=== PATIENT | female | born 1980 | race Caucasian/White ===

== ENCOUNTER → 2016-07-02 | Outpatient (CLI) | payer OTHER ==
[~2016-07-02] MED LIST: AGM875 PO; ALBU1AER9 INH; AZIT250T PO; BENZ1CAP90 PO; CHOL20009 PO; HYLANDS PO; LEVO75TA5 PO; MULT-506 PO; POTASSIUM PO; [UNRECOGNIZED DRUG - CODE] VA
== END | disposition home or self-care (01) ==
LOC: C.LAB1850 12:50
PROVIDERS: ATTEND Nurse Practitioner Family
DX: E03.9 Hypothyroidism, unspecified (principal); E55.9 Vitamin D deficiency, unspecified

== ENCOUNTER → 2016-07-10 | Day surgery (SDC) | payer OTHER ==
[2016-07-02 11:33] VITALS: BMI 26.0
[~2016-07-10] VITALS: Ht 172.7 cm; Wt 77.3 kg
[~2016-07-10] MED LIST changes: -AGM875 PO; -AZIT250T PO; -BENZ1CAP90 PO; +DEXAMETHASONE SOD INJ 4 MG/ML VIAL ONE; +LIDOCAINE HCL 2% 2 ML VIAL (20MG/ML) ONE; +MIDAZOLAM HCL 1 MG/ML 2ML VIAL ONE; -MULT-506 PO; +PROPOFOL IV EMULSION 10 MG/ML 20 ML VIAL IV ONE; +RANITIDINE HCL 25 MG/ML INJ ONE; +SODIUM CHLORIDE 0.9% 500ML 500 ML IV ONE
[2016-07-10 09:30] VITALS: Ht 172.7 cm; Wt 77.3 kg
--- NOTE | 2016-07-10 10:06 | Endo History and Physical ---
History & Physical Date of Service: Jul 10, 2016. Chief Complaint: diarrhea and constipation Referring Physician: HALLEY Mckinney History of Present Illness 36 yo CF who presents for colonoscopy secondary to abdominal pain and diarrhea. Past Surgical History Hx Cardiac Surgery: No Hx Internal Defibrillator: No Hx Pacemaker: No Hx Abdominal Surgery: No Hx of Implantable Prosthesis: No Hx Post-Op Nausea and Vomiting: No Hx Cancer Surgery: No Hx Thoracic Surgery: No Hx Orthopedic: No Hx Urinary Tract Surgery: No Family History None Social History Smoking Status: Current Every Day Smoker Hx Substance Use: No Hx Alcohol Use: Yes (RARELY) Allergies Coded Allergies: Diphenhydramine (Verified Allergy, Mild, SWELLING, 07/10/16) Current Medications Reported Home Medications Medications Dose Route/Sig Max Daily Dose Days Date Category Zazole (Terconazole Vaginal) 0.8 % Cre 1 Dose [facility] HS 07/02/16 Reported [[place]] 1 Tab PO DIRECTED PRN 07/02/16 Reported [Potassium] 1 Tab PO DAILY AFTERNOON 07/02/16 Reported Vitamin D (Cholecalciferol) 2,000 Unit Tab 1 Tab PO DAILY AFTERNOON 07/02/16 Reported Levothyroxine Sodium 75 Mcg Tab 1 Tab PO QAM 90 07/02/16 Reported Proair Hfa (Albuterol) Aers 2 Puff INH Q4HR PRN 10/24/08 Rx Vital Signs Weight (Kilograms): 77.27 Height (Feet): 5 Height (Inches): 8 Date Time Temp Pulse Resp B/P Pulse Ox O2 Delivery O2 Flow Rate FiO2 07/10/16 09:39 36.7 93 16 120/72 97 Room Air Physical Exam General Appearance: WD/WN, no apparent distress Respiratory/Chest: Auscultation: breath sounds normal Cardiovascular: Heart Auscultation: RRR Abdomen: Bowel Sounds: normal Inspection & Palpation: soft, non-distended, no tenderness, guarding & rebound Assessment and Plan Assessment: 36 yo CF who presents for colonoscopy secondary to abdominal pain and diarrhea. Plan: Proceed with colonoscopy
--- NOTE | 2016-07-10 11:26 | Discharge Instructions ---
Endoscopy Patient Instructions Date / Procedure(s) Performed Jul 10, 2016. Colonoscopy Allergy Information Coded Allergies: Diphenhydramine (Verified Allergy, Mild, SWELLING, 07/10/16) Discharge Date / Findings Jul 10, 2016. Random colon biopsies Internal hemorrhoids Medication Instructions OK to resume all medications today as prescribed Reported Home Medications Medications Dose Route/Sig Max Daily Dose Days Date Category Zazole (Terconazole Vaginal) 0.8 % Cre 1 Dose [facility] HS 07/02/16 Reported [[place]] 1 Tab PO DIRECTED PRN 07/02/16 Reported [Potassium] 1 Tab PO DAILY AFTERNOON 07/02/16 Reported Vitamin D (Cholecalciferol) 2,000 Unit Tab 1 Tab PO DAILY AFTERNOON 07/02/16 Reported Levothyroxine Sodium 75 Mcg Tab 1 Tab PO QAM 90 07/02/16 Reported Proair Hfa (Albuterol) Aers 2 Puff INH Q4HR PRN 10/24/08 Rx Provider Instructions Activity Restrictions - No exercising or heavy lifting for 24 hours. - Do not drink alcohol the day of the procedure. - Do not drive a car or operate machinery until the day after the procedure. - Do not make any important decisions or sign important papers in 24 hours after the procedure. Following Day: - Return to full activity which may include returning to work/school. Diet Start your diet with liquids and light foods (jello, soup, juice, toast). Then eat your usual diet if not nauseated. Treatment For Common After Affects For mild abdominal pain, bloating, or excessive gas: - Rest - Eat lightly - Lie on right side Follow-Up Information Follow-up with HALLEY Mckinney as scheduled Anesthesia Information What You Should Know You have had a procedure that required some medicine to reduce anxiety and discomfort. This treatment is called moderate sedation. After receiving the treatment, you may be sleepy, but you will be able to breathe on your own. The effects of the treatment may last for several hours. Follow these instructions along with Activity/Diet recommendations noted above: * Do NOT do anything where dizziness or clumsiness would be dangerous. * Rest quietly at home today, then you can be up and about tomorrow. * Have a responsible person stay with you the rest of today. * You may have had an I.V. today. If so, you may take the dressing off later today. Recommendations Call your doctor if: * Trouble breathing * Continuous vomiting for more than 24 hours * Temperature above 101 degrees * Severe abdominal pain or bloating * Pain not relieved by pain medicine ordered * There is increased drainage or redness from any incision * A large amount of rectal bleeding greater than 2-3 tablespoons. (If you had a polyp/s removed or have hemorrhoids, a small amount of blood - from the rectum is to be expected.) * You have any unanswered questions or concerns. IN THE EVENT OF A SERIOUS EMERGENCY, GO TO THE NEAREST EMERGENCY ROOM Your discharge instructions were prepared by provider Terell Paulino. Patient Instructions Signature Page Jami Vyas Patient (or Guardian) Signature/Date: I have read and understand the instructions given to me by my caregivers. Caregiver/RN/Doctor Signature/Date: The above-named patient and/or guardian has received patient instructions on this date. + Original Patient Signature Page (only) stays with chart. Please make copy for patient.
--- NOTE | 2016-07-10 11:51 | GI REPORT ---
Procedure Date: 07/10/2016 10:52 AM Procedure: Colonoscopy Indications: Generalized abdominal pain, Chronic diarrhea Medicines: Monitored Anesthesia Care Complications: No immediate complications. Estimated Blood Loss: Estimated blood loss: none. Procedure: Pre-Anesthesia Assessment: - Prior to the procedure, a History and Physical was performed, and patient medications and allergies were reviewed. The patient's tolerance of previous anesthesia was also reviewed. The risks and benefits of the procedure and the sedation options and risks were discussed with the patient. All questions were answered, and informed consent was obtained. Prior Anticoagulants: The patient has taken no previous anticoagulant or antiplatelet agents. ASA Grade Assessment: III - A patient with severe systemic disease. After reviewing the risks and benefits, the patient was deemed in satisfactory condition to undergo the procedure. After I obtained informed consent, the scope was passed under direct vision. Throughout the procedure, the patient's blood pressure, pulse, and oxygen saturations were monitored continuously. The scope was introduced through the anus and advanced to the terminal ileum. The colonoscopy was performed without difficulty. The patient tolerated the procedure well. The quality of the bowel preparation was good. The terminal ileum, ileocecal valve, appendiceal orifice, and rectum were photographed. Findings: Non-bleeding internal hemorrhoids were found during retroflexion. The hemorrhoids were small. Several random biopsies were obtained with cold forceps for histology in the entire colon. Impression: - Non-bleeding internal hemorrhoids. - Several random biopsies were obtained in the entire colon. Recommendation: - Resume previous diet. - Continue present medications. - Repeat colonoscopy for surveillance based on pathology results. - Return to primary care physician as previously scheduled. Terell Paulino, 07/10/2016 11:50:28 AM This report has been signed electronically. Note Initiated On: 07/10/2016 10:52 AM
[2016-07-10 11:55] VITALS: BP 100/67; PULSE 80; O2SAT 100
--- NOTE | 2016-07-10 17:08 | Anesthesiology Progress Note ---
Anesthesia Post Op Note Date & Time Jul 10, 2016 at 17:07 Vital Signs Pain Intensity: 0 Vital Signs Past 12 Hours Date Time Temp Pulse Resp B/P Pulse Ox O2 Delivery O2 Flow Rate FiO2 07/10/16 11:55 80 16 100/67 100 Room Air 07/10/16 11:40 80 16 87/58 100 Room Air 07/10/16 11:25 97 16 85/47 97 Room Air 07/10/16 09:39 36.7 93 16 120/72 97 Room Air Notes Mental Status: alert / awake / arousable, participated in evaluation Pt Amnestic to Procedure: Yes Nausea / Vomiting: adequately controlled Pain: adequately controlled Airway Patency, RR, SpO2: stable & adequate BP & HR: stable & adequate Hydration State: stable & adequate Anesthetic Complications: no major complications apparent
== END | disposition home or self-care (01) ==
LOC: C.GI 09:12
PROVIDERS: ATTEND Internal Medicine
DX: R10.84 Generalized abdominal pain (principal); K52.9 Noninfective gastroenteritis and colitis, unspecified; K64.8 Other hemorrhoids; J45.909 Unspecified asthma, uncomplicated; F17.200 Nicotine dependence, unspecified, uncomplicated; Z68.26 Body mass index [BMI] 26.0-26.9, adult

== ENCOUNTER → 2016-07-17 | Outpatient (CLI) | payer OTHER ==
[~2016-07-17] MED LIST changes: -DEXAMETHASONE SOD INJ 4 MG/ML VIAL ONE; -LIDOCAINE HCL 2% 2 ML VIAL (20MG/ML) ONE; -MIDAZOLAM HCL 1 MG/ML 2ML VIAL ONE; -PROPOFOL IV EMULSION 10 MG/ML 20 ML VIAL IV ONE; -RANITIDINE HCL 25 MG/ML INJ ONE; -SODIUM CHLORIDE 0.9% 500ML 500 ML IV ONE
== END | disposition home or self-care (01) ==
LOC: C.LABSPEC 10:41
PROVIDERS: ATTEND Obstetrics & Gynecology
DX: B37.3 Candidiasis of vulva and vagina (principal)

== ENCOUNTER → 2016-10-16 | Outpatient (CLI) | payer OTHER ==
[2016-10-16 19:05] LABS: THYROID STIMULATING HORMONE 8.09 uIu/ml (0.300-4.500)
== END | disposition home or self-care (01) ==
LOC: C.LAB1850 14:16
PROVIDERS: ATTEND Nurse Practitioner Family
DX: E55.9 Vitamin D deficiency, unspecified (principal); E03.9 Hypothyroidism, unspecified

== ENCOUNTER → 2016-12-04 | Outpatient (CLI) | payer OTHER ==
[2016-12-04 14:44] LABS: THYROID STIMULATING HORMONE 9.77 uIu/ml (0.300-4.500)
== END | disposition home or self-care (01) ==
LOC: C.LAB1850 12:00
PROVIDERS: ATTEND Nurse Practitioner Family
DX: E03.9 Hypothyroidism, unspecified (principal)

== ENCOUNTER → 2017-11-10 | Outpatient (CLI) | payer OTHER ==
[~2017-11-10] MED LIST changes: +OPTIRAY 320 IV PRN
--- NOTE | 2017-11-10 12:26 | DIAGNOSTIC IMAGING REPORT ---
CT OF THE ORBITS WITH CONTRAST CLINICAL HISTORY: Periorbital cellulitis. COMPARISON STUDY: No previous studies for comparison. TECHNIQUE: Axial images of the orbits were obtained following intravenous injection of 94 cc of Optiray 320 IV. FINDINGS: Visualized portions of the intracranial contents are unremarkable. The mastoid air cells are clear. There is mild mucosal thickening of the right maxillary sinus. The globes are intact. There is no retrobulbar bulbar infiltration or abscess. There is mild right preseptal periorbital soft tissue swelling. There is no rim-enhancing fluid collection to suggest an abscess. No radiopaque foreign bodies identified. Extraocular muscles are intact. IMPRESSION: Mild right periorbital soft tissue swelling suggestive of preseptal cellulitis. No abscess. No postseptal component. Globes intact. Electronically signed by: Florentino Martinez M.D. 11/10/2017 12:24 PM Dictated Date/Time: 11/10/2017 12:20 PM
== END | disposition home or self-care (01) ==
LOC: C.CTS 11:14
PROVIDERS: ATTEND Nurse Practitioner Family
DX: L03.213 Periorbital cellulitis (principal)

== ENCOUNTER → 2017-11-10 | Outpatient (CLI) | payer OTHER ==
[~2017-11-10] MED LIST changes: -OPTIRAY 320 IV PRN
[2017-11-10 12:18] LABS: BASO % 0.5 %; BASO ABS # 0.05 K/uL (0-0.2); EOS % 1.8 %; EOS ABS # 0.19 K/uL (0-0.5); HEMATOCRIT 38.9 % (37-47); HEMOGLOBIN 12.8 g/dL (12.0-16.0); IG# 0.06 K/uL (0.00-0.02); LYMPH % 21.8 %; LYMPH ABS # 2.33 K/uL (1.2-3.4); MEAN CELL VOLUME 93.1 fL (80-100); MEAN CORPUSCULAR HEMOGLOBIN 30.6 pg (25-34); MEAN CORPUSCULAR HGB CONC 32.9 g/dl (32-36); MEAN PLATELET VOLUME 10.5 fL (7.4-10.4); MONO % 10.1 %; MONO ABS # 1.08 K/uL (0.11-0.59); NEUT % 65.2 %; PLATELET COUNT 368 K/uL (130-400); RED CELL DISTRIBUTION WIDTH CV 13.4 % (11.5-14.5); RED CELL DISTRIBUTION WIDTH SD 45.9 fL (36.4-46.3); WHITE BLOOD COUNT 10.71 K/uL (4.8-10.8)
[2017-11-10 12:45] LABS: BLOOD UREA NITROGEN 13 mg/dl (7-18); CALCIUM 8.9 mg/dl (8.5-10.1); CARBON DIOXIDE 25 mmol/L (21-32); CREATININE 0.96 mg/dl (0.60-1.20); GLUCOSE 94 mg/dl (70-99); POTASSIUM 4.7 mmol/L (3.5-5.1); SODIUM 139 mmol/L (136-145)
== END | disposition home or self-care (01) ==
LOC: C.LAB1850 10:17
PROVIDERS: ATTEND Nurse Practitioner Family
DX: L03.213 Periorbital cellulitis (principal)

== ENCOUNTER → 2018-02-18 | Outpatient (CLI) | payer OTHER | END | disposition home or self-care (01) | LOC: C.LAB1850 12:17 | PROVIDERS: ATTEND Nurse Practitioner Family | DX: E03.9 Hypothyroidism, unspecified (principal); E55.9 Vitamin D deficiency, unspecified ==